=== PATIENT | female | born 1985 | race Two or more races ===

== ENCOUNTER → 2019-11-24 | Outpatient (CLI) | payer OTHER | END | disposition home or self-care (01) | LOC: PRENATAL 13:11 | DX: O24.312 Unspecified pre-existing diabetes mellitus in pregnancy, second trimester (principal); O09.512 Supervision of elderly primigravida, second trimester; O99.280 Endocrine, nutritional and metabolic diseases complicating pregnancy, unspecified trimester; O99.342 Other mental disorders complicating pregnancy, second trimester; O44.02 Complete placenta previa NOS or without hemorrhage, second trimester; O26.852 Spotting complicating pregnancy, second trimester; O35.3XX0 Maternal care for (suspected) damage to fetus from viral disease in mother, not applicable or unspecified; O34.42 Maternal care for other abnormalities of cervix, second trimester ==

== ENCOUNTER → 2019-12-27 | Outpatient (CLI) | payer OTHER | END | disposition home or self-care (01) | LOC: PRENATAL 09:00 | DX: O44.02 Complete placenta previa NOS or without hemorrhage, second trimester (principal); O09.512 Supervision of elderly primigravida, second trimester; O24.312 Unspecified pre-existing diabetes mellitus in pregnancy, second trimester; O99.282 Endocrine, nutritional and metabolic diseases complicating pregnancy, second trimester; O99.344 Other mental disorders complicating childbirth; Z3A.24 24 weeks gestation of pregnancy ==

== ENCOUNTER → 2020-01-24 | Outpatient (CLI) | payer OTHER | END | disposition home or self-care (01) | LOC: PRENATAL 08:00 | DX: O99.89 Other specified diseases and conditions complicating pregnancy, childbirth and the puerperium (principal); O09.523 Supervision of elderly multigravida, third trimester; O26.873 Cervical shortening, third trimester; O24.313 Unspecified pre-existing diabetes mellitus in pregnancy, third trimester; O44.03 Complete placenta previa NOS or without hemorrhage, third trimester ==

== ENCOUNTER → 2020-02-23 | Outpatient (CLI) | payer OTHER ==
[~2020-02-23] MED LIST: CLONAZEPAM2 MG PO; ENDOMETRIN100 MG IM; FOLIC ACID20 MG PO; FORTAMET1000 MG PO; IRON325 MG IJ; PRENATAL VITAM1 EAC4 PO; PROMETRIUM200 MG PO; PROZAC20 MG PO; SYNTHROID75 MCG PO
== END | disposition home or self-care (01) ==
LOC: PRENATAL 08:00
PROVIDERS: ATTEND Obstetrics & Gynecology
DX: O26.843 Uterine size-date discrepancy, third trimester (principal); O99.283 Endocrine, nutritional and metabolic diseases complicating pregnancy, third trimester; O99.333 Smoking (tobacco) complicating pregnancy, third trimester; Z3A.32 32 weeks gestation of pregnancy

== ENCOUNTER 2020-03-20 22:30 | Outpatient (CLI) | payer OTHER ==
[2020-03-20] MEDS ORDERED: SYNTHROID75 MCG PO (22:55)
[2020-03-20] MEDS ORDERED: CLONAZEPAM2 MG PO (22:55)
[2020-03-20] MEDS ORDERED: FORTAMET1000 MG PO (22:56)
[2020-03-20] MEDS ORDERED: PROZAC20 MG PO (22:57)
[2020-03-20] MEDS ORDERED: PRENATAL VITAM1 EAC4 PO (22:59)
[2020-03-20] MEDS ORDERED: PROMETRIUM200 MG PO (22:59)
[2020-03-20] MEDS ORDERED: ENDOMETRIN100 MG IM (23:03)
[2020-03-22] MEDS ORDERED: FOLIC ACID20 MG PO (20:26)
[2020-03-22] MEDS ORDERED: IRON325 MG IJ (20:29)
== END 2020-03-21 11:21 | disposition home or self-care (01) ==
LOC: OBS/DEL 22:30
PROVIDERS: ATTEND Obstetrics & Gynecology
DX: O60.03 Preterm labor without delivery, third trimester (principal); O36.8131 Decreased fetal movements, third trimester, fetus 1

== ENCOUNTER 2020-03-22 18:40 | Inpatient (IN) | payer OTHER | END 2020-03-25 16:20 | disposition home or self-care (01) | DRG 786 | LOC: LDR 18:40 → OB/GYN 03-23 00:35 | PROVIDERS: ADMIT Obstetrics & Gynecology | PROC: 10D00Z1 Extraction of Products of Conception, Low, Open Approach (ICD-10-PCS; principal; 2020-03-22) | PROC: 4A1HXCZ Monitoring of Products of Conception, Cardiac Rate, External Approach (ICD-10-PCS; 2020-03-22) | PROC: 3E033VJ Introduction of Other Hormone into Peripheral Vein, Percutaneous Approach (ICD-10-PCS; 2020-03-22) | DX: O61.0 Failed medical induction of labor (principal); O33.8 Maternal care for disproportion of other origin; O60.14X1 Preterm labor third trimester with preterm delivery third trimester, fetus 1; Z3A.36 36 weeks gestation of pregnancy; Z37.0 Single live birth; Z22.330 Carrier of Group B streptococcus ==

== ENCOUNTER 2021-07-20 10:41 | Outpatient (CLI) | payer OTHER | END 2021-07-20 11:59 | disposition home or self-care (01) | LOC: PRENATAL 10:41 | PROVIDERS: ATTEND Obstetrics & Gynecology Maternal & Fetal Medicine | DX: O24.311 Unspecified pre-existing diabetes mellitus in pregnancy, first trimester (principal); O99.891 Other specified diseases and conditions complicating pregnancy; O36.80X1 Pregnancy with inconclusive fetal viability, fetus 1; O09.521 Supervision of elderly multigravida, first trimester; Z36.89 Encounter for other specified antenatal screening; Z3A.12 12 weeks gestation of pregnancy ==

== ENCOUNTER 2021-09-13 07:49 | Outpatient (CLI) | payer OTHER | END 2021-09-13 09:55 | disposition home or self-care (01) | LOC: PRENATAL 07:49 | PROVIDERS: ATTEND Obstetrics & Gynecology Maternal & Fetal Medicine | DX: O35.0XX1 Maternal care for (suspected) central nervous system malformation in fetus, fetus 1 (principal); O35.3XX1 Maternal care for (suspected) damage to fetus from viral disease in mother, fetus 1; O98.512 Other viral diseases complicating pregnancy, second trimester; O09.512 Supervision of elderly primigravida, second trimester; O24.312 Unspecified pre-existing diabetes mellitus in pregnancy, second trimester; O99.891 Other specified diseases and conditions complicating pregnancy; Z36.89 Encounter for other specified antenatal screening; Z3A.20 20 weeks gestation of pregnancy ==

== ENCOUNTER 2021-11-06 09:25 | Outpatient (CLI) | payer OTHER | END 2021-11-06 10:38 | disposition home or self-care (01) | LOC: PRENATAL 09:25 | PROVIDERS: ATTEND Obstetrics & Gynecology Maternal & Fetal Medicine | DX: O24.319 Unspecified pre-existing diabetes mellitus in pregnancy, unspecified trimester (principal) ==

== ENCOUNTER 2021-12-01 20:49 | Outpatient (CLI) | payer OTHER ==
[2021-12-01] MEDS ORDERED: LEVO-T75 MCG PO (21:18)
[2021-12-01] MEDS ORDERED: METFORMIN HCL1000 M2 PO (21:19)
[2021-12-01] MEDS ORDERED: PROZAC40 MG PO (21:20)
[2021-12-01] MEDS ORDERED: CLONAZEPAM2 MG PO (21:22)
[2021-12-01] MEDS ORDERED: PRENATAL CAPLE1 EAC1 PO (21:22)
[2021-12-01] MEDS ORDERED: FOLIC ACID20 MG PO (21:23)
== END 2021-12-01 23:32 | disposition home or self-care (01) ==
LOC: OBS/DEL 20:49
PROVIDERS: ATTEND Obstetrics & Gynecology
DX: O26.893 Other specified pregnancy related conditions, third trimester (principal); R30.0 Dysuria; R10.2 Pelvic and perineal pain; Z3A.31 31 weeks gestation of pregnancy

== ENCOUNTER 2021-12-05 09:45 | Outpatient (CLI) | payer OTHER ==
[~2021-12-05 09:45] MED LIST changes: +LEVO-T75 MCG PO; +METFORMIN HCL1000 M2 PO; +PRENATAL CAPLE1 EAC1 PO; +PROZAC40 MG PO
== END 2021-12-05 11:25 | disposition home or self-care (01) ==
LOC: PRENATAL 09:45
PROVIDERS: ATTEND Obstetrics & Gynecology Maternal & Fetal Medicine
DX: O26.849 Uterine size-date discrepancy, unspecified trimester (principal); O99.891 Other specified diseases and conditions complicating pregnancy; O09.529 Supervision of elderly multigravida, unspecified trimester; O24.319 Unspecified pre-existing diabetes mellitus in pregnancy, unspecified trimester; O34.219 Maternal care for unspecified type scar from previous cesarean delivery

== ENCOUNTER 2022-01-01 08:39 | Outpatient (CLI) | payer OTHER | END 2022-01-01 09:47 | disposition home or self-care (01) | LOC: PRENATAL 08:39 | PROVIDERS: ATTEND Obstetrics & Gynecology Maternal & Fetal Medicine | DX: O26.849 Uterine size-date discrepancy, unspecified trimester (principal); O09.529 Supervision of elderly multigravida, unspecified trimester; O34.219 Maternal care for unspecified type scar from previous cesarean delivery ==

== ENCOUNTER 2022-01-09 16:52 | Inpatient (IN) | payer OTHER ==
[~2022-01-09] VITALS: Ht 154.9 cm; Wt 2.3 kg
== END 2022-01-12 14:14 | disposition home or self-care (01) | DRG 788 ==
LOC: OB/GYN 16:52 → LDR 16:52 → OB/GYN 22:58
PROVIDERS: ADMIT Obstetrics & Gynecology; ATTEND Obstetrics & Gynecology
PROC: 4A1HXCZ Monitoring of Products of Conception, Cardiac Rate, External Approach (ICD-10-PCS; 2022-01-09)
PROC: 10D00Z1 Extraction of Products of Conception, Low, Open Approach (ICD-10-PCS; principal; 2022-01-09 22:00)
DX: O34.211 Maternal care for low transverse scar from previous cesarean delivery (principal); Z3A.37 37 weeks gestation of pregnancy; Z37.0 Single live birth; Z20.822 Contact with and (suspected) exposure to COVID-19

== ENCOUNTER 2022-01-16 14:54 | Emergency (ER) | payer OTHER ==
[~2022-01-16] VITALS: Ht 154.9 cm; Wt 64.9 kg
[2022-01-16] MEDS ORDERED: CLONAZEPAM2 M1 (15:17)
[2022-01-16] MEDS ORDERED: SYNTHROID75 MCG (15:17)
[2022-01-16] MEDS ORDERED: GLUMETZA1000 MG (15:17)
[2022-01-16] MEDS ORDERED: PRENATAL + DHA1 EAC1 (15:18)
[2022-01-16] MEDS ORDERED: FOLIC ACID0.4 MG (15:18)
== END 2022-01-16 19:00 | disposition home or self-care (01) ==
LOC: ER 14:54
DX: O86.20 Urinary tract infection following delivery, unspecified (principal); N39.0 Urinary tract infection, site not specified; R10.2 Pelvic and perineal pain; Z91.014 Allergy to mammalian meats; Z88.0 Allergy status to penicillin; Z91.018 Allergy to other foods

== ENCOUNTER 2022-01-20 23:29 | Emergency (ER) | payer OTHER ==
[~2022-01-20] VITALS: Ht 154.9 cm; Wt 59.0 kg
[~2022-01-20 23:29] MED LIST changes: +CLONAZEPAM2 M1; +FOLIC ACID0.4 MG; +GLUMETZA1000 MG; +PRENATAL + DHA1 EAC1; +SYNTHROID75 MCG
[2022-01-20] MEDS ORDERED: PROZAC40 MG PO (23:36)
[2022-01-21] MEDS ORDERED: CIPRO500 MG PO (07:16)
== END 2022-01-21 08:11 ==
LOC: ER 23:29
DX: T81.49XA Infection following a procedure, other surgical site, initial encounter (principal); Z98.891 History of uterine scar from previous surgery; Z88.0 Allergy status to penicillin; Z91.018 Allergy to other foods

== ENCOUNTER 2022-02-23 13:17 | Emergency (ER) | payer OTHER ==
[~2022-02-23] VITALS: Ht 154.9 cm; Wt 59.4 kg
[~2022-02-23 13:17] MED LIST changes: +CIPRO500 MG PO
== END 2022-02-23 17:33 | disposition home or self-care (01) ==
LOC: ER 13:17
DX: B34.9 Viral infection, unspecified (principal); F41.9 Anxiety disorder, unspecified; Z88.0 Allergy status to penicillin; Z88.2 Allergy status to sulfonamides; Z91.018 Allergy to other foods; Z91.012 Allergy to eggs; Z91.011 Allergy to milk products; Z91.02 Food additives allergy status; E11.9 Type 2 diabetes mellitus without complications; Z79.84 Long term (current) use of oral hypoglycemic drugs; E03.9 Hypothyroidism, unspecified; J45.909 Unspecified asthma, uncomplicated; L93.0 Discoid lupus erythematosus; Z20.822 Contact with and (suspected) exposure to COVID-19

== ENCOUNTER 2022-03-03 08:23 | Emergency (ER) | payer OTHER ==
[~2022-03-03] VITALS: Ht 154.9 cm; Wt 59.4 kg
== END 2022-03-03 11:40 | disposition home or self-care (01) ==
LOC: ER 08:23
DX: I95.9 Hypotension, unspecified (principal); J45.909 Unspecified asthma, uncomplicated; R10.13 Epigastric pain; E11.9 Type 2 diabetes mellitus without complications; Z79.84 Long term (current) use of oral hypoglycemic drugs; Z91.014 Allergy to mammalian meats; Z88.0 Allergy status to penicillin; Z91.018 Allergy to other foods

== ENCOUNTER 2022-06-05 09:03 | Emergency (ER) | payer OTHER ==
[~2022-06-05] VITALS: Ht 154.9 cm; Wt 60.8 kg
[2022-06-05] MEDS ORDERED: SYNTHROID75 MCG PO (09:23)
== END 2022-06-05 12:22 | disposition home or self-care (01) ==
LOC: ER 09:03
DX: J06.9 Acute upper respiratory infection, unspecified (principal); E11.9 Type 2 diabetes mellitus without complications; Z79.84 Long term (current) use of oral hypoglycemic drugs; Z20.822 Contact with and (suspected) exposure to COVID-19; Z91.014 Allergy to mammalian meats; Z88.0 Allergy status to penicillin; Z91.018 Allergy to other foods

== ENCOUNTER 2022-08-17 18:03 | Emergency (ER) | payer OTHER ==
[~2022-08-17] VITALS: Ht 165.1 cm; Wt 58.1 kg
[2022-08-17] MEDS ORDERED: OSEL75CA PO (21:31)
[2022-08-17] MEDS ORDERED: FLONASE16 GM NASAL (21:31)
== END 2022-08-17 21:39 | disposition home or self-care (01) ==
LOC: ER 18:03
DX: R06.9 Unspecified abnormalities of breathing (principal); Z20.822 Contact with and (suspected) exposure to COVID-19; Z91.014 Allergy to mammalian meats; Z88.0 Allergy status to penicillin; Z91.018 Allergy to other foods; E11.9 Type 2 diabetes mellitus without complications; Z79.84 Long term (current) use of oral hypoglycemic drugs; E03.9 Hypothyroidism, unspecified

== ENCOUNTER 2022-11-09 19:26 | Emergency (ER) | payer OTHER ==
[~2022-11-09] VITALS: Ht 154.9 cm; Wt 63.0 kg
[~2022-11-09 19:26] MED LIST changes: +FLONASE16 GM NASAL; +OSEL75CA PO
== END 2022-11-09 20:29 | disposition home or self-care (01) ==
LOC: ER 19:26
DX: J06.9 Acute upper respiratory infection, unspecified (principal); E11.9 Type 2 diabetes mellitus without complications; Z79.84 Long term (current) use of oral hypoglycemic drugs; Z91.014 Allergy to mammalian meats; Z88.0 Allergy status to penicillin; Z91.018 Allergy to other foods

== ENCOUNTER 2023-08-28 16:07 | Outpatient (CLI) | payer OTHER | END 2023-08-28 16:10 | disposition home or self-care (01) | LOC: PRENATAL 16:07 | PROVIDERS: ATTEND Obstetrics & Gynecology Maternal & Fetal Medicine | DX: O36.80X0 Pregnancy with inconclusive fetal viability, not applicable or unspecified (principal); Z36.82 Encounter for antenatal screening for nuchal translucency; O09.529 Supervision of elderly multigravida, unspecified trimester; O34.219 Maternal care for unspecified type scar from previous cesarean delivery; O24.319 Unspecified pre-existing diabetes mellitus in pregnancy, unspecified trimester; O99.341 Other mental disorders complicating pregnancy, first trimester; Z36.9 Encounter for antenatal screening, unspecified; Z14.8 Genetic carrier of other disease; Z3A.14 14 weeks gestation of pregnancy ==

== ENCOUNTER → 2023-10-09 11:13 | Outpatient (CLI) | payer OTHER | END | disposition home or self-care (01) | LOC: PRENATAL 11:13 | PROVIDERS: ATTEND Obstetrics & Gynecology Maternal & Fetal Medicine | DX: O35.9XX0 Maternal care for (suspected) fetal abnormality and damage, unspecified, not applicable or unspecified (principal); O44.00 Complete placenta previa NOS or without hemorrhage, unspecified trimester; O09.529 Supervision of elderly multigravida, unspecified trimester; O34.219 Maternal care for unspecified type scar from previous cesarean delivery; O24.319 Unspecified pre-existing diabetes mellitus in pregnancy, unspecified trimester; Z3A.20 20 weeks gestation of pregnancy ==